=== PATIENT | female | born 2000 | race Caucasian/White ===

== ENCOUNTER 2022-04-09 12:10 | Emergency (ER) | payer SELFPAY ==
[~2022-04-09] VITALS: Ht 162.6 cm; Wt 55.8 kg
[2022-04-09] MEDS ORDERED: ZITHROMAX250 MG PO (13:05)
== END 2022-04-09 13:16 | disposition home or self-care (01) ==
LOC: FSED 13:02
DX: J02.0 Streptococcal pharyngitis (principal)
CPT/HCPCS: 83518; 99282